=== PATIENT | female | born 2000 | race Two or more races ===

== ENCOUNTER 2023-08-09 20:34 | Emergency (ER) | payer MEDICAID ==
[~2023-08-09] VITALS: Ht 172.7 cm; Wt 53.0 kg
[2023-08-09] MEDS: METHYLPREDNISOLONE SOD SUCC 125MG/2ML (ACT-O-VIAL) IV STA (21:03)
[2023-08-09] MEDS: LORAZEPAM 0.5MG TABLET PO ONE (21:07)
[2023-08-09 21:11] VITALS: PULSE 124; RESP 24; O2SAT 95
[2023-08-09] MEDS: IPRATROPIUM BROMIDE (0.02%) 0.5MG/2.5ML NEB HHN STA (21:11)
[2023-08-09] MEDS: ALBUTEROL (0.083%) 2.5MG/3ML NEB HHN STA (21:11)
[2023-08-09] MEDS: SODIUM CHLORIDE 0.9% 1,000 ML IV ONE (22:42)
[2023-08-09 22:57] VITALS: BP 131/69; PULSE 101; RESP 19
[2023-08-09] MEDS ORDERED: P20 MT (23:25)
[2023-08-09] MEDS ORDERED: ALBU6.7H15 INH (23:25)
== END 2023-08-10 00:01 | disposition home or self-care (01) ==
LOC: ER 20:34
DX: J45.901 Unspecified asthma with (acute) exacerbation (principal)
CPT/HCPCS: 71045; 94644; 96361; 96374; 99285; J2919; Z7610 ×3; J7030; 94640